=== PATIENT | female | born 1990 | race American Indian/Alaskan Native ===

== ENCOUNTER 2018-07-07 16:58 | Emergency (ER) | payer SELFPAY ==
[2018-07-07 17:12] VITALS: BP 134/88
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
[2018-07-07] MEDS ORDERED: NORCO 5/325 PO ONE (21:41)
[2018-07-07 21:52] LABS: HCG Qualitative,Urine Negative (Negative)
== END 2018-07-07 23:23 | disposition home or self-care (01) ==
LOC: ED 16:58
DX: S00.83XA Contusion of other part of head, initial encounter (principal); G44.319 Acute post-traumatic headache, not intractable; M54.2 Cervicalgia; F17.200 Nicotine dependence, unspecified, uncomplicated; Z88.6 Allergy status to analgesic agent; V49.49XA Driver injured in collision with other motor vehicles in traffic accident, initial encounter; Y93.89 Activity, other specified; Y92.89 Other specified places as the place of occurrence of the external cause; Y99.8 Other external cause status
CPT/HCPCS: 81025; 99283